=== PATIENT | female | born 1955 | race Caucasian/White ===

== ENCOUNTER 2021-10-24 14:45 | Inpatient (IN) | payer OTHER ==
[~2021-10-24] VITALS: Ht 167.6 cm; Wt 108.9 kg
[~2021-10-24 14:45] MED LIST: APPLE CIDER VI600 MG PO; CYMBALTA60 MG PO; HARD NAILS2500 MCG PO; PRAVACHOL80 MG PO; PRESERVISION A1 EACH PO; PRIMIDONE50 MG PO; SYNTHROID25 MCG PO; VOLTAREN EC 5050 MG PO
[2021-10-24 15:27] LABS: HEMOGLOBIN 16.4 gm/dl (12.3-15.3); RED BLOOD COUNT 5.12 M/UL (4.00-5.10); WHITE BLOOD COUNT 20.5 K/UL (4.5-11.0)
[2021-10-24] MEDS ORDERED: VITAMIN D21250 MCG PO (17:32)
[2021-10-24] MEDS ORDERED: BUSPIRONE HCL15 MG PO (17:32)
[2021-10-24] MEDS ORDERED: CRESTOR20 MG PO (17:33)
[2021-10-24] MEDS ORDERED: ASPIRIN EC81 MG PO (17:33)
[2021-10-25 07:29] LABS: HEMOGLOBIN 13.4 gm/dl (12.3-15.3); RED BLOOD COUNT 4.31 M/UL (4.00-5.10); WHITE BLOOD COUNT 12.5 K/UL (4.5-11.0)
[2021-10-25] MEDS ORDERED: MULTAQ 400 MG400 MG PO (09:55)
[2021-10-25] MEDS ORDERED: NICOTINE PATCH1 EAC2 TD (09:55)
[2021-10-25] MEDS ORDERED: ELIQUIS 5 MG TAB5 MG PO (09:55)
== END 2021-10-25 10:42 | disposition home or self-care (01) | DRG 309 ==
LOC: ER1 14:45 → CDU 16:41 → PROG CARE 18:30
PROVIDERS: Family Medicine; ADMIT Internal Medicine
PROC: B24BZZZ Ultrasonography of Heart with Aorta (ICD-10-PCS; principal; 2021-10-25)
DX: I48.0 Paroxysmal atrial fibrillation (principal); I50.32 Chronic diastolic (congestive) heart failure; F41.9 Anxiety disorder, unspecified; F32.A Depression, unspecified; M19.91 Primary osteoarthritis, unspecified site; I11.0 Hypertensive heart disease with heart failure; J44.9 Chronic obstructive pulmonary disease, unspecified; E78.5 Hyperlipidemia, unspecified; E03.9 Hypothyroidism, unspecified; F17.210 Nicotine dependence, cigarettes, uncomplicated; Z90.49 Acquired absence of other specified parts of digestive tract; Z98.890 Other specified postprocedural states; Z82.49 Family history of ischemic heart disease and other diseases of the circulatory system; Z88.8 Allergy status to other drugs, medicaments and biological substances; Z88.5 Allergy status to narcotic agent; Z79.82 Long term (current) use of aspirin
CPT/HCPCS: ECHO; 36415; 71045; 80048; 80053; 82550; 82553; 83605; 83880; 84439; 84443; 84484; 85025; 85610; 85730; 93005; 93306; 94640; 94760; 96374; 99285; J1644; J1940; U0002